=== PATIENT | female | born 1960 | race Caucasian/White ===

== ENCOUNTER → 2024-01-09 08:53 | Outpatient (REF) | payer BC, SELFPAY ==
[2024-01-09 09:50] LABS: % Basophils 0.8 % (0-2); % Eosinophils 1.7 % (0-6); % Immature Granulocytes 0.8 % (0-0.5); % Lymphocytes 30.4 % (20.5-51.1); % Monocytes 8.6 % (1.7-9.3); % Neutrophils 57.7 % (42.2-75.2); Absolute Basophils 0.1 10^3/uL (0-0.2); Absolute Eosinophils 0.1 10^3/uL (0-0.7); Absolute Immature Granulocytes 0.1 10^3/uL (0-0.05); Absolute Monocytes 0.6 10^3/uL (0.1-0.6); Absolute Neutrophils 3.7 10^3/uL (1.4-6.5); Hematocrit 37.5 % (37.0-47.0); Hemoglobin 12.8 g/dL (12.0-16.0); Mean Corp Hgb Conc. 34.1 g/dL (33.0-37.0); Mean Corpuscular Hgb 30.2 pg (27.0-31.0); Mean Corpuscular Volume 88.4 fL (81.0-99.0); Mean Platelet Volume 8.7 fL (7.4-10.4); Nucleated Red Blood Cells % 0 %; Platelet Count 264 10^3/uL (130-400); Red Blood Cell Count 4.24 10^6/uL (4.20-5.40); Red Cell Dist. Width 13.4 % (11.5-14.5); White Blood Cell Count 6.4 10^3/uL (4.8-10.8)
[2024-01-09 11:43] LABS: ALT (SGPT) 26 U/L (0-35); AST (SGOT) 26 U/L (14-36); Albumin 4.2 g/dl (3.5-5.0); Alkaline Phosphatase 79 U/L (38-126); Blood Urea Nitrogen 18 mg/dl (7-17); Calcium 9.5 mg/dl (8.4-10.2); Carbon Dioxide 22 mmol/L (22-30); Chloride 106 mmol/L (98-107); Glucose 93 mg/dl (70-99); HDL Cholesterol 67 mg/dl; Potassium 4.1 mmol/L (3.5-5.1); Sodium 137 mmol/L (135-145); Total Bilirubin 0.7 mg/dl (0.2-1.3); Total Cholesterol 193 mg/dl (50-199); Total Protein 6.8 g/dl (6.3-8.2); eGFR > 60.00
[2024-01-09 11:53] LABS: TSH 0.89 uIU/ml (0.47-4.68)
[2024-01-09 12:17] LABS: LDL Cholesterol, Calculated 111 mg/dl; Triglyceride 78 mg/dl (10-149); Very Low Density Lipoprotein 15 mg/dl (0-30)
[2024-01-10 08:59] LABS: Glycohemoglobin (HgbA1c) 5.8 % (4.0-5.6)
== END ==
LOC: REG 08:53
PROVIDERS: ATTENDING PHYSICIAN Family Medicine
DX: R07.9 Chest pain, unspecified (principal)
CPT/HCPCS: 36415; 71046; 80053; 80061; 83036; 84443; 85025

== ENCOUNTER → 2024-01-13 08:27 | Outpatient (REF) | payer BC, SELFPAY | LOC: RAD 08:27 | PROVIDERS: ATTENDING PHYSICIAN Family Medicine | DX: I65.29 Occlusion and stenosis of unspecified carotid artery (principal) | CPT/HCPCS: 93880 ==

== ENCOUNTER → 2024-01-14 13:52 | Outpatient (REF) | payer BC, SELFPAY | LOC: WDC 13:52 | PROVIDERS: ATTENDING PHYSICIAN Family Medicine | DX: Z12.31 Encounter for screening mammogram for malignant neoplasm of breast (principal) | CPT/HCPCS: 77063; 77067 ==

== ENCOUNTER → 2024-02-17 13:46 | Outpatient (REF) | payer BC, SELFPAY | LOC: HWRAD 13:46 | PROVIDERS: ATTENDING PHYSICIAN Family Medicine | DX: R10.13 Epigastric pain (principal) | CPT/HCPCS: 76700 ==

== ENCOUNTER → 2024-03-04 12:23 | Outpatient (REF) | payer BC, SELFPAY | LOC: RCS 12:23 | PROVIDERS: ATTENDING PHYSICIAN Internal Medicine Cardiovascular Disease; FAMILY PHYSICIAN Family Medicine | DX: R07.9 Chest pain, unspecified (principal) | CPT/HCPCS: 93017; 93350 ==

== ENCOUNTER 2024-04-02 06:11 | Day surgery (SDC) | payer BC, SELFPAY ==
[2024-04-02] VITALS (13 sets, daily range): BP systolic 114–155; BP diastolic 58–76; BMI 28.2
[2024-04-02] MEDS: TYLENOL 1000 MG PO (06:31)
[2024-04-02] MEDS: NORMOSOL-R 1000 IV (06:53)
--- NOTE | 2024-04-02 08:29 | W.SUR.PREOP ---
Pre-Operative Surgical Note
-
I have examined this patient prior to the performance of the scheduled procedure.
The patient's condition is unchanged from the time of the current History and
Physical and the patient is able to undergo the scheduled procedure.
--- NOTE | 2024-04-02 08:29 | W.IMMPOSTOP ---
Surgical Immed Post Op Note
-
Primary Surgeon: Toan Rodriguez MD
Assisting Surgeon: None
Pre-op Diagnosis: Biliary colic
Post-op Diagnosis: Same
Procedure Performed: Laparoscopic cholecystectomy with cholangiogram
Anesthesia Type: General
Specimen / Cultures: Gallbladder and contents
Estimated Blood Loss: 7 cc
Complications: None
Operative Findings: Chronically inflamed mildly thickened gallbladder with fairly significant but flimsy adhesions over the anterior surface of the gallbladder. Critical view of safety obtained prior to a cholangiogram which demonstrated no filling
defects and normal biliary anatomy. Duct ligated with a clip followed by a 0 PDS Endoloop.
--- NOTE | 2024-04-02 08:33 | OR.RPT ---
Operative Report
Operative Report
Patient Name: Niyah Schrader
: 1960
Date of Operation: 04/02/2024
Preoperative Diagnosis: Symptomatic Cholelithiasis
Postoperative Diagnosis: Same
Procedure(s):
Laparoscopic Cholecystectomy with Cholangiogram
Surgeon(s):
Dr. Rodriguez
Life Insurance Agent(s):
TAD Araujo
Anesthesia: General
Estimated Blood Loss: 7 cc
Urine Output: None
Drains/Lines/Implants: None
Specimens:
1. Gallbladder and contents
HPI/Surgical Indications:
This is a 63 year old female who presents with abdominal pain. Exam, labs and imaging are consistent with symptomatic cholelithiasis. Risks/Benefits/Alternatives were discussed at length, and the patient agreed to proceed with surgery.
Operative Findings: Chronically inflamed mildly thickened gallbladder with fairly significant but flimsy adhesions over the anterior surface of the gallbladder. Critical view of safety obtained prior to a cholangiogram which demonstrated no filling
defects and normal biliary anatomy. Duct ligated with a clip followed by a 0 PDS Endoloop.
Procedure Description:
The patient was brought to the Operating Room and placed in the supine position. IV antibiotics were infused and sequential compression devices were confirmed to be on. Following uneventful induction of general endotracheal anesthesia, an
orogastric tube was placed. The abdomen was prepped and draped in the usual sterile fashion. The abdomen was entered using a left subcostal Veress technique which required 1 pass followed by a right upper quadrant periumbilical 5 mm Optiview
trocar. Pneumoperitoneum to 15 mmHg pressure was obtained without difficulty and we confirmed that no injury had occurred during our entry. The patient was positioned in reverse trendelenberg and rotated with the right side up slightly. Two 5mm
trocars were then placed along the right subcostal margin, and a 12 mm port in the epigastrium. There was a significant but flimsy adhesions from the periduodenal fat over the entire anterior surface of the gallbladder that were carefully lysed
using electrocautery and blunt dissection before a locking grasping forceps was placed on the fundus of the gallbladder where it was then retracted cephalad and to the right. Using appropriate grasping instruments, the peritoneum overlying the
triangle of Calot was incised. There is very little fat over the structures of the buddy and the common bile duct could readily be identified as well is the cystic duct. The cystic duct/gallbladder junction was identified, dissected
circumferentially. The cystic artery was identified medially and was dissected circumferentially. A critical view was obtained. A clip was then placed on the cystic duct/gallbladder junction and an intraoperative cholangiogram performed using
fluoroscopy, which showed good flow of dye into the duodenum. There were no intra- or extrahepatic bile duct filling defects. The biliary anatomy appeared normal. Following completion of the cholangiogram, the catheter was removed. Two clips were
then placed proximally on the cystic duct and the duct divided. Two clips were placed proximally and one distally on the cystic artery, and the artery was divided. Remaining soft tissue attachments of the gallbladder to the liver bed were then
divided using electrocautery. There was no spillage of bile or stones. The gallbladder bed was inspected and excellent hemostasis was obtained. The gallbladder was extracted through the 12 mm trocar site using an endocatch bag. The abdomen was
again irrigated and excellent hemostasis was assured. All remaining trocars were then removed and the pneumoperitoneum was evacuated. The 12 mm trocar site was closed using a figure of 8 of 0 PDS. All trocar sites were closed at the skin level
using 4-0 Monocryl followed by Dermabond. Overall, the patient tolerated the procedure well and was taken to the Recovery Room postoperatively in stable condition.
I was the attending physician and performed the procedure with assistance from the EQUINE DENTIST above. I was present for all portions of the case, excluding skin closure
Toan Rodriguez MD
[2024-04-02] MEDS: ZOFRAN 4 MG IV (08:45)
[2024-04-02] MEDS: DILAUDID 0.25 MG IV (09:01)
[2024-04-02] MEDS: COMPAZINE 5 MG IV (09:27)
--- NOTE | 2024-04-02 11:01 | PTCARENOTE ---
Patient piyush pale and sleepy. Patient is going to take a short nap prior to d/c.
== END 2024-04-02 12:17 | disposition home or self-care (01) ==
LOC: SDS 06:11
PROVIDERS: ATTENDING PHYSICIAN Surgery
DX: K80.20 Calculus of gallbladder without cholecystitis without obstruction (principal)
CPT/HCPCS: 47563; 88304; 74300; 76000; A4300

== ENCOUNTER → 2024-07-14 08:48 | Outpatient (REF) | payer BC, SELFPAY ==
[2024-07-14 10:28] LABS: ALT (SGPT) 19 U/L (0-35); AST (SGOT) 25 U/L (14-36); Albumin 4.3 g/dl (3.5-5.0); Alkaline Phosphatase 74 U/L (38-126); Blood Urea Nitrogen 20 mg/dl (7-17); Calcium 9.2 mg/dl (8.4-10.2); Carbon Dioxide 25 mmol/L (22-30); Chloride 103 mmol/L (98-107); Glucose 91 mg/dl (70-99); Iron 101 ug/dl (37-170); Potassium 4.3 mmol/L (3.5-5.1); Sodium 141 mmol/L (135-145); Total Bilirubin 0.7 mg/dl (0.2-1.3); Total Protein 6.7 g/dl (6.3-8.2); eGFR > 60.00
[2024-07-14 10:39] LABS: Percent Saturation 31 % (20-50); Total Iron Binding Capacity 322 ug/dl (265-497)
[2024-07-14 10:59] LABS: Hepatitis B Surface Antigen Negative (Negative)
[2024-07-14 11:04] LABS: Ferritin 45.1 ng/ml (11.1-264.0)
[2024-07-14 11:17] LABS: Hepatitis B Core Ab, Total Negative (Negative); Hepatitis B Surface Antibody Negative; Hepatitis C Antibody Negative (Negative)
[2024-07-14 12:13] LABS: Hepatitis A Antibody, Total Negative (Negative)
[2024-07-15 15:10] LABS: tTG IgA Antibody 7.4 EU/ml (0-19)
[2024-07-16 12:11] LABS: Ceruloplasmin 28 mg/dL (16-45)
[2024-07-16 18:10] LABS: F-Actin Antibody IgG 10 Units (0-19); Mitochondrial M2 Ab, IgG 3.9 Units (0.0-24.9)
[2024-07-16 21:36] LABS: LKM-1 Ab (IgG) 0.5 U (0.0-24.9); Soluble Liver Antigen Ab 0.9 U (0.0-24.9)
[2024-07-16 22:25] LABS: ANA, IgG Reflex to HEp-2 None Detected (None Detected)
== END ==
LOC: REG 08:48
PROVIDERS: ATTENDING PHYSICIAN Nurse Practitioner Adult Health; FAMILY PHYSICIAN Family Medicine
DX: K76.0 Fatty (change of) liver, not elsewhere classified (principal)
CPT/HCPCS: 36415; 80053; 81256; 82103; 82104; 82390; 82728; 83516; 83540; 83550; 86015; 86038; 86376; 86381; 86704; 86706; 86708; 86803; 87340